=== PATIENT | male | born 1960 | race Caucasian/White ===

== ENCOUNTER 2016-10-26 16:19 | Inpatient (IN) | payer MEDICAID, OTHER ==
[~2016-10-26] VITALS: Ht 180.3 cm; Wt 147.2 kg
[~2016-10-26 16:19] MED LIST: ALAV10TA PO; ALBU2.5I INH; BACT2OIN TOPICAL; BISA5TAB PO; CALC500T19 PO; CVS20TAB PO; CYCL-36 PO; DOCU1CAP39 PO; DUONI NEB; IPRA0.03; LEVEMIR SQ; LISI20 PO; LORA0.5T PO; MONT10TA2 PO; NEUR100C PO; OXYC5 PO; PARO20; POLY17S PO; REST15CA PO; SENN8.6T36 PO; SPIRCAP INH; ST JTAB PO; ZINC100T PO
[2016-10-26 16:25] VITALS: BP 204/101; PULSE 97; RESP 20; TEMP 99.2; O2SAT 97
[2016-10-26 16:34] VITALS: RESP 20; O2SAT 97
--- NOTE | 2016-10-26 16:34 | PD ---
HPI Chief Complaint: Injury Time Seen by Provider: 16:33 Travel History International Travel<30 days: No Contact w/Intl Traveler<30days: No History of Present Illness HPI 56-year-old male with DM, COPD, chronic back pain presents to the ED via EMS from his rehabilitation Center after suffering a mechanical fall today. The patient states he was attempting to get out of his wheelchair, lost his balance , fell forward with the left knee bent underneath him. He endorses hitting his head on the wall. He denies loss of consciousness. On presentation he complains of 10/10 left lower extremity pain, worsened by movement. He denies headache, dizziness, nausea, vomiting, shortness of breath. Patient reports eating a full lunch around 12:30 today. PFSH Past Medical History Arthritis: Yes (ALL OVER) Asthma: Yes Autoimmune Disease: No Anxiety: Yes Depression: Yes Heart Rhythm Problems: No Cancer: No Cardiovascular Problems: No High Cholesterol: No Chest Pain: Yes (RIGHT SIDE OF CHEST) Congestive Heart Failure: No COPD: Yes Cerebrovascular Accident: No Diabetes: Yes (STATES BORDERLINE, NO MEDS.) Diminished Hearing: No Endocrine: No Gastrointestinal Disorders: No GERD: No Genitourinary: No Headaches: Yes Hiatal Hernia: No Hypertension: No Immune Disorder: No Implanted Vascular Access Dvce: No Kidney Stones: No Musculoskeletal: Yes (CHRONIC BACK) Neurologic: Yes Psychiatric: No Reproductive: No Respiratory: Yes Immunizations Current: No Migraines: Yes (FREQ) Renal Failure: No Seizures: No Sleep Apnea: No Thyroid Disease: No Ulcer: No PNEUMOCCOCAL Vaccine (Year): 1 Past Surgical History Abdominal Surgery: No AICD: No Cardiac Surgery: No Ear Surgery: No Endocrine Surgery: No Eye Surgery: No Genitourinary Surgery: No Gynecologic Surgery: No Joint Replacement: Yes (L HIP X 2) Neurologic Surgery: No (LAMINECTOMY) Oral Surgery: No Pacemaker: No Thoracic Surgery: Yes (ABCESS DRAINED IN CHEST 3 WEEKS AGO) Tonsillectomy: Yes Other Surgery: Yes (BACK SUGERY X2 /LEFT HIP SURGERY) Social History Alcohol Use: No Tobacco Use: No (QUIT 2011- 2PPD PRIOR) Substance Use: No Allergies-Medications (Allergen,Severity, Reaction): Coded Allergies: *MDRO Multi-Drug Resistant Organism (Verified Adverse Reaction, Unknown, ) MRSA (leg) - 05/2004, 10/2004 / (buttock) - 05/2006 *MRSA PCR negative 09/28/2015* Reported Meds & Prescriptions Reported Meds & Active Scripts Active Reported Vitamin D3 (Cholecalciferol) 2,000 Unit Tab 2,000 Units PO BID Trazodone (Trazodone HCl) 100 Mg Tab 100 Mg PO HS Spiriva Handihaler (Tiotropium Inh) 18 Mcg Cap 18 Mcg INH DAILY 1 capsule = 18 mcg Singulair (Montelukast Sodium) 10 Mg Tab 10 Mg PO HS Senna (Sennosides) 8.6 Mg Tab 17.2 Mg PO BID Prednisone 5 Mg Tab 7.5 Mg PO DAILY Paxil (Paroxetine HCl) 30 Mg Tab 30 Mg PO DAILY Patanase Nasal [place] (Olopatadine Nasal [place]) 0.6 % Naspr 2 [place] EACH NARE BID PRN Oxycodone (Oxycodone HCl) 10 Mg Tab 10 Mg PO Q6HR PRN Omeprazole 20 Mg Tab 20 Mg PO DAILY Milk of Magnesia Liq (Magnesium Hydroxide) 400 Mg/5 Ml Susp 30 Ml PO HS PRN Metformin (Metformin HCl) 1,000 Mg Tab 1,000 Mg PO BID With meals Lorazepam 0.5 Mg Tab 0.5 Mg PO TID PRN Alavert (Loratadine) 10 Mg Tab 10 Mg PO DAILY Atorvastatin (Atorvastatin Calcium) 10 Mg Tab 10 Mg PO HS Humulin R Inj (Insulin Human Regular) 1,000 Unit/10 Ml Vial 2-10 Units SQ TIDAC PRN IMPORTANT TO EAT A MEAL WITHIN 30-60 MINUTES OF DOSING Gabapentin 300 Mg Cap 300 Mg PO TID Flexeril (Cyclobenzaprine HCl) 10 Mg Tab 10 Mg PO HS Flexeril (Cyclobenzaprine HCl) 10 Mg Tab 10 Mg PO BID PRN Duoneb (Ipratropium-Albuterol Neb) 0.5-2.5 Mg/3 Ml Neb 1 Nebule INH QID NEB PRN Dulcolax Supp (Bisacodyl) 10 Mg Supp 10 Mg RECTAL DAILY PRN Colace (Docusate Sodium) 100 Mg Cap 200 Mg PO BID Cozaar (Losartan Potassium) 50 Mg Tab 50 Mg PO DAILY Calcium (Oyster Shell) 500 Mg Tab 500 Mg PO DAILY Basaglar Kwikpen (Insulin Glargine) 100 Unit/Ml Pen 25 Units SQ BID Aspirin DR (Aspirin) 81 Mg Tabdr 81 Mg PO DAILY Glimepiride 2 Mg Tab 2 Mg PO DAILYAC Take with breakfast or first main meal Albuterol Neb (Albuterol Sulfate) 2.5 Mg/3 Ml Neb 2.5 Mg NEB Q4HR NEB PRN Advair Diskus Inh (Fluticasone-Salmeterol Inh) 250-50 Mcg/Blist Aer 1 Puff INH BID Rinse mouth after use. Review of Systems Except as stated in HPI: all other systems reviewed are Neg Physical Exam Narrative GENERAL: Well-nourished, well-developed morbidly obese white male, writhing in pain on the stretcher. Alert, oriented 5. SKIN: Warm and dry. HEAD: Normocephalic. No tenderness to palpation. No bony step-offs. EYES: No scleral icterus. No injection or drainage. PERRLA. EOMI. NECK: Supple, trachea midline. No JVD or lymphadenopathy. CARDIOVASCULAR: Regular rate and rhythm without murmurs, gallops, or rubs. 2+ DP and radial pulses bilaterally. RESPIRATORY: Breath sounds clear and equal bilaterally. No accessory muscle use. GASTROINTESTINAL: Abdomen protuberant, soft, non-tender, nondistended. Unable to palpate liver or splenic edges. MUSCULOSKELETAL: No cyanosis, or edema. FOCUSED LEFT LOWER EXTREMITY EXAM: 2+ DP pulse. Mild visible deformity of the upper leg. Patient is holding the knee in slight flexion. Tender to palpation of the distal tibia, joint lines of the knee and proximal tibia. No popliteal tenderness. Patient is able to wiggle the toes and weakly flex and extend the ankle. Sensation intact to light touch distally. Cap refill less than 2 seconds. NEUROLOGICAL: Awake and alert. Cranial nerves II through XII intact. Motor and sensory grossly within normal limits. Five out of 5 muscle strength in all muscle groups. Normal speech. BACK: Nontender without obvious deformity. No CVA tenderness. Data Data Last Documented VS Vital Signs Date Time Temp Pulse Resp B/P Pulse Ox O2 Delivery O2 Flow Rate FiO2 10/26/16 19:12 98 22 149/67 98 Nasal Cannula 3 10/26/16 16:25 99.2 Orders Iv Access Insert/Monitor (10/26/16 16:31) Ecg Monitoring (10/26/16 16:31) Oximetry (10/26/16 16:31) NPO (10/26/16 16:31) Sodium Chloride 0.9% Flush (Ns Flush) (10/26/16 16:45) Hydromorphone Pf Inj (Dilaudid Pf Inj) (10/26/16 16:45) Femur (Ap & Lat/2vws) (10/26/16 16:31) Complete Blood Count With Diff (10/26/16 17:38) Comprehensive Metabolic Panel (10/26/16 17:38) Chest, Single Ap (10/26/16 ) Urinalysis - C+S If Indicated (10/26/16 17:38) Electrocardiogram (10/26/16 ) Urinary Catheter Insert/Apply (10/26/16 17:38) Hydromorphone Pf Inj (Dilaudid Pf Inj) (10/26/16 17:45) Coag Profile (10/26/16 17:40) Type And Screen (10/26/16 17:40) Sodium Chlor 0.9% 1000 Ml Inj (Ns 1000 M (10/26/16 18:45) Morphine Inj (Morphine Inj) (10/26/16 18:45) Admit Order (Ed Use Only) (10/26/16 19:29) Labs Laboratory Tests Test 10/26/16 18:00 White Blood Count 10.6 TH/MM3 Red Blood Count 5.04 MIL/MM3 Hemoglobin 12.8 GM/DL Hematocrit 40.0 % Mean Corpuscular Volume 79.4 FL Mean Corpuscular Hemoglobin 25.4 PG Mean Corpuscular Hemoglobin 32.0 % Concent Red Cell Distribution Width 16.8 % Platelet Count 170 TH/MM3 Mean Platelet Volume 10.0 FL Neutrophils (%) (Auto) 78.1 % Lymphocytes (%) (Auto) 13.4 % Monocytes (%) (Auto) 5.9 % Eosinophils (%) (Auto) 1.8 % Basophils (%) (Auto) 0.8 % Neutrophils # (Auto) 8.3 TH/MM3 Lymphocytes # (Auto) 1.4 TH/MM3 Monocytes # (Auto) 0.6 TH/MM3 Eosinophils # (Auto) 0.2 TH/MM3 Basophils # (Auto) 0.1 TH/MM3 CBC Comment DIFF FINAL Differential Comment Prothrombin Time 10.0 SEC Prothromb Time International 0.9 RATIO Ratio Activated Partial 22.9 SEC Thromboplast Time Urine Color YELLOW Urine Turbidity CLEAR Urine pH 5.5 Urine Specific [place] 1.014 Urine Protein 100 mg/dL Urine Glucose (UA) 70 mg/dL Urine Ketones NEG mg/dL Urine Occult Blood MOD Urine Nitrite NEG Urine Bilirubin NEG Urine Urobilinogen LESS THAN 2.0 MG/DL Urine Leukocyte Esterase NEG Urine RBC 1 /hpf Urine WBC 1 /hpf Urine Mucus FEW /lpf Microscopic Urinalysis Comment CULT NOT INDICATED Sodium Level 141 MEQ/L Potassium Level 4.4 MEQ/L Chloride Level 102 MEQ/L Carbon Dioxide Level 30.0 MEQ/L Anion Gap 9 MEQ/L Blood Urea Nitrogen 22 MG/DL Creatinine 1.25 MG/DL Estimat Glomerular Filtration 60 ML/MIN Rate Random Glucose 191 MG/DL Calcium Level 8.8 MG/DL Total Bilirubin 0.4 MG/DL Aspartate Amino Transf 11 U/L (AST/SGOT) Alanine Aminotransferase 45 U/L (ALT/SGPT) Alkaline Phosphatase 74 U/L Total Protein 6.7 GM/DL Albumin 3.3 GM/DL Blood Type AB POSITIVE Antibody Screen NEGATIVE Blood Bank Comment MDM Medical Decision Making Medical Screen Exam Complete: Yes Emergency Medical Condition: Yes Interpretation(s) Rate 102, sinus rhythm. NC interval 143, QRS 93, QTc 389 ms. Normal axis. No ST elevations. Reviewed by Dr. Munoz Differential Diagnosis fracture versus dislocation versus ligamentous injury versus other Narrative Course 56-year-old male with DM, COPD, chronic back pain presents to the ED via EMS from his rehabilitation Center after suffering a mechanical fall today. The patient states he was attempting to get out of his wheelchair, lost his balance , fell forward with the left knee bent underneath him. He endorses hitting his head on the wall. He denies loss of consciousness. On presentation he complains of 10/10 left lower extremity pain, worsened by movement. He denies headache, dizziness, nausea, vomiting, shortness of breath. Patient reports eating a full lunch around 12:30 today. Vitals reviewed. Patient is hypertensive on presentation. Physical exam reveals 2+ DP pulse. Mild visible deformity of the upper leg. Patient is holding the knee in slight flexion. Tender to palpation of the distal tibia, joint lines of the knee and proximal tibia. No popliteal tenderness. Patient is able to wiggle the toes and weakly flex and extend the ankle. Sensation intact to light touch distally. Cap refill less than 2 seconds. The need for radiological studies of the brain was ruled out by [place] CT rules. IV was established. Patient was placed on continuous monitoring. Patient was ordered nothing by mouth. He was administered a milligram of Dilaudid IV. X-ray of the femur reveals oblique fracture of the distal shaft of the left femur with lateral displacement. CBC, CMP, coag profile, type and screen, EKG, chest x-ray, Medina catheter ordered and pending. Call placed to the on-call orthopedist, Dr. Fowler. Recheck of the patient reveals continued pain. He was administered 0.5 mg Dilaudid IV and a liter of normal saline. The community service officer states that Dr. Fowler refused the patient and asked that a call be placed to Dr. Duckworth. I'll admit the patient to the medical service and consult the orthopedist. Please see medicine and ortho notes for disposition. Diagnosis Primary Impression: Fracture of left femur Qualified Code: S72.492A - Other closed fracture of distal end of left femur, initial encounter Ella Leonardo Oct 26, 2016 16:34
[2016-10-26] MEDS ORDERED: HYDROmorphone HCL PF 1 MG/ML VIAL IVS ONE (16:45)
[2016-10-26] MEDS ORDERED: SODIUM CHLORIDE 0.9% FLUSH 5 ML FLUSH IVF PRN (16:45)
[2016-10-26] MEDS ORDERED: ADVA250A INH (16:49)
[2016-10-26] MEDS ORDERED: SENN8.6T5 PO (17:13)
[2016-10-26] MEDS ORDERED: METF1000 PO (17:13)
[2016-10-26] MEDS ORDERED: PATA0.6S EACH NARE (17:13)
[2016-10-26] MEDS ORDERED: VITA200012 PO (17:13)
[2016-10-26] MEDS ORDERED: LORA-373 PO (17:13)
[2016-10-26] MEDS ORDERED: DULC10SU3 RECTAL (17:13)
[2016-10-26] MEDS ORDERED: INSU100V2 SQ (17:13)
[2016-10-26] MEDS ORDERED: PAXI30TA7 PO (17:13)
[2016-10-26] MEDS ORDERED: ASPI81TA5 PO (17:13)
[2016-10-26] MEDS ORDERED: OMEP20TA PO (17:13)
[2016-10-26] MEDS ORDERED: INSU1INJ18 SQ (17:13)
[2016-10-26] MEDS ORDERED: MONT10TA2 PO (17:13)
[2016-10-26] MEDS ORDERED: ALBU0.08 NEB (17:13)
[2016-10-26] MEDS ORDERED: COZA50TA PO (17:13)
[2016-10-26] MEDS ORDERED: TRAZ100T4 PO (17:13)
[2016-10-26] MEDS ORDERED: CALC500T35 PO (17:13)
[2016-10-26] MEDS ORDERED: COLA100C3 PO (17:13)
[2016-10-26] MEDS ORDERED: ATOR10TA15 PO (17:13)
[2016-10-26] MEDS ORDERED: GLIM2TAB PO (17:13)
[2016-10-26] MEDS ORDERED: IPRASOL INH (17:13)
[2016-10-26] MEDS ORDERED: ALAV10TA10 PO (17:13)
[2016-10-26] MEDS ORDERED: CYCL1TAB29 PO ×2 (17:13)
[2016-10-26] MEDS ORDERED: MILKSUS PO (17:13)
[2016-10-26] MEDS ORDERED: PRED5TAB PO (17:13)
[2016-10-26] MEDS ORDERED: SPIRCAP INH (17:13)
[2016-10-26] MEDS ORDERED: GABA300C5 PO (17:13)
[2016-10-26] MEDS ORDERED: OXYC-395 PO (17:13)
--- NOTE | 2016-10-26 17:31 | RADRPT ---
EXAM DATE/TIME: 10/26/2016 17:01 [facility] COMPARISON: No previous studies available for comparison. INDICATIONS : Left femur pain post fall. MEDICAL HISTORY : None. SURGICAL HISTORY : Left hip pinning ENCOUNTER: Initial ACUITY: 1 day PAIN SCORE: 10/10 LOCATION: Left distal femur FINDINGS: Two view examination of the left femur demonstrates oblique fracture distal shaft left femur with dis placement laterally. Soft tissue swelling. Extensive arthritic changes of the left hip. Screw in plac e CONCLUSION: Distal left femur fracture. Marty Martinez MD on October 26, 2016 at 17:29 Board Certified Radiologist. This report was verified electronically.
[2016-10-26] MEDS ORDERED: HYDROmorphone HCL PF 1 MG/ML VIAL IV PUSH ONE (17:45)
[2016-10-26 18:07] VITALS: BP 137/99; PULSE 94; RESP 18; O2SAT 97
--- NOTE | 2016-10-26 18:09 | RADRPT ---
EXAM DATE/TIME: 10/26/2016 17:52 [facility] COMPARISON: No previous studies available for comparison. INDICATIONS : Evaluate for pneumonia, pneumothorax or communicable disease. Pre-op, left femur surgery. MEDICAL HISTORY : None. SURGICAL HISTORY : None. ENCOUNTER: Initial ACUITY: 1 day PAIN SCORE: 0/10 LOCATION: Bilateral chest FINDINGS: A single view of the chest demonstrates the lungs to be symmetrically aerated without evidence of mas s, infiltrate or effusion. The cardiomediastinal contours are unremarkable. Osseous structures are intact. CONCLUSION: No acute disease. Marty Martinez MD on October 26, 2016 at 18:08 Board Certified Radiologist. This report was verified electronically.
[2016-10-26 18:20] LABS: BLOOD, URINE MOD (NEG); COMMENT (UR) CULT NOT INDICATED; CULTURE IF INDICATED CULT NOT INDICATED; GLUCOSE,URINE 70 mg/dL (NEG); KETONE, URINE NEG (NEG); MUCUS URINE FEW /lpf (OCC); NITRITE,URINE NEG (NEG); PH, URINE 5.5 (5.0-8.5); URINE COLOR YELLOW (YELLW/STRAW)
[2016-10-26 18:21] LABS: AUTOMATED NEUTROPHIL # 8.3 TH/MM3 (1.8-7.7); BASOPHIL # 0.1 TH/MM3 (0-0.2); BASOPHIL % 0.8 % (0.0-2.0); EOSINOPHIL # 0.2 TH/MM3 (0-0.4); EOSINOPHIL % 1.8 % (0.0-4.0); HEMO FLAGS DIFF FINAL; LYMPH % 13.4 % (9.0-44.0); LYMPHOCYTE # 1.4 TH/MM3 (1.0-4.8); MEAN CELL VOLUME 79.4 FL (80.0-100.0); MEAN CORPUSCULAR HEMOGLOBIN 25.4 PG (27.0-34.0); MONO % 5.9 % (0.0-8.0); NEUT % 78.1 % (16.0-70.0); PLATELET COUNT 170 TH/MM3 (150-450); RED BLOOD COUNT 5.04 MIL/MM3 (4.50-5.90); RED CELL DISTRIBUTION WIDTH 16.8 % (11.6-17.2); WHITE BLOOD COUNT 10.6 TH/MM3 (4.0-11.0)
[2016-10-26 18:32] LABS: APTT (PATIENT) 22.9 SEC (24.3-30.1); INTERNATIONAL NORMALIZED RATIO 0.9 RATIO
[2016-10-26 18:34] LABS: ANION GAP 9 MEQ/L (5-15); AST (GOT) 11 U/L (15-37); BLOOD UREA NITROGEN 22 MG/DL (7-18); CHLORIDE 102 MEQ/L (98-107); GLOMERULAR FILTRATION RATE 60 ML/MIN (>89); POTASSIUM 4.4 MEQ/L (3.5-5.1); SODIUM (NA) 141 MEQ/L (136-145)
[2016-10-26 18:37] LABS: ALKALINE PHOSPHATASE 74 U/L (45-117); ALT (GPT) 45 U/L (12-78); TOTAL BILIRUBIN ADULT 0.4 MG/DL (0.2-1.0)
[2016-10-26] MEDS ORDERED: SODIUM CHLOR 0.9% 1000 ML INJ 1,000 ML IV ONE (18:45)
[2016-10-26] MEDS ORDERED: MORPHINE SULFATE 4 MG/ML INJ IM ONE (18:45)
[2016-10-26 19:12] VITALS: BP 149/67; PULSE 98; RESP 22; O2SAT 98
--- NOTE | 2016-10-26 19:41 | HHI.HP ---
[facility] Admission Diagnosis oblique fracture distal left femur Diagnoses: (1) Fall Diagnosis: Principal (2) Fracture of left femur Diagnosis: Principal (3) COPD (chronic obstructive pulmonary disease) Diagnosis: Principal (4) HTN (hypertension) Diagnosis: Principal (5) DM (diabetes mellitus) Diagnosis: Principal Travel History International Travel<30 Days: No Contact w/Intl Traveler <30 Da: No Traveled to Known Affected Are: No History of Present Illness This is a 56-year-old male with a PMH of Anxiety, Depression, COPD, HTN and DM who was sent to the ER from [facility] for complaints of left knee pain following fall. Pt was apparently transferring from wheelchair and fell onto his left knee. No LOC or head trauma reported. On arrival, BP 204/101, HR 97, O2 sat 97% on RA, Temp 99.2. BP currently 149/67, HR 98. Chemistry at baseline. UA negative for UTI. CXR with no acute findings. Femur X-ray with distal left femur fracture. Ortho consulted by ER physician, plan is for surgical intervention in am. Review of Systems Except as stated in HPI: all other systems reviewed are Neg ROS: 14 point review of systems otherwise negative. Past Family Social History Past Medical History PMH: Anxiety, Depression, COPD, HTN and DM Past Surgical History PAST SURGICAL HISTORY: Left Hip Replacement, Lumbar Laminectomy Allergies: Coded Allergies: *MDRO Multi-Drug Resistant Organism (Verified Adverse Reaction, Unknown, ) MRSA (leg) - 05/2004, 10/2004 / (buttock) - 05/2006 *MRSA PCR negative 09/28/2015* Family History PAST FAMILY HISTORY: Reviewed. No h/o DM or CAD Social History PAST SOCIAL HISTORY: Negative for alcohol, tobacco or drugs. Physical Exam Vital Signs Vital Signs Date Time Temp Pulse Resp B/P Pulse Ox O2 Delivery O2 Flow Rate FiO2 10/26/16 19:12 98 22 149/67 98 Nasal Cannula 3 10/26/16 18:07 94 18 137/99 97 Room Air 2 10/26/16 16:34 20 97 Room Air 10/26/16 16:25 99.2 97 20 204/101 97 Physical Exam PE: GENERAL: Middle-aged white male in no acute distress. HEENT: PERRLA, EOMI. No scleral icterus or conjunctival pallor. No lid lag or facial droop. CARDIOVASCULAR: Regular rate and rhythm. No obvious murmurs to auscultation. No chest tenderness to palpation. RESPIRATORY: No obvious rhonchi or wheezing. Clear to auscultation. Breath sounds equal bilaterally. GASTROINTESTINAL: Abdomen obese but soft, non-tender, nondistended. BS normal. MUSCULOSKELETAL: Decreased ROM of LLE due to injury. Pulses intact. NEUROLOGICAL: Awake, alert and oriented x4. No focal neurologic deficits. Moving both upper and lower extremities spontaneously. Laboratory Laboratory Tests Test 10/26/16 18:00 White Blood Count 10.6 Red Blood Count 5.04 Hemoglobin 12.8 Hematocrit 40.0 Mean Corpuscular Volume 79.4 Mean Corpuscular Hemoglobin 25.4 Mean Corpuscular Hemoglobin 32.0 Concent Red Cell Distribution Width 16.8 Platelet Count 170 Mean Platelet Volume 10.0 Neutrophils (%) (Auto) 78.1 Lymphocytes (%) (Auto) 13.4 Monocytes (%) (Auto) 5.9 Eosinophils (%) (Auto) 1.8 Basophils (%) (Auto) 0.8 Neutrophils # (Auto) 8.3 Lymphocytes # (Auto) 1.4 Monocytes # (Auto) 0.6 Eosinophils # (Auto) 0.2 Basophils # (Auto) 0.1 CBC Comment DIFF FINAL Differential Comment Prothrombin Time 10.0 Prothromb Time International 0.9 Ratio Activated Partial 22.9 Thromboplast Time Urine Color YELLOW Urine Turbidity CLEAR Urine pH 5.5 Urine Specific [place] 1.014 Urine Protein 100 Urine Glucose (UA) 70 Urine Ketones NEG Urine Occult Blood MOD Urine Nitrite NEG Urine Bilirubin NEG Urine Urobilinogen LESS THAN 2.0 Urine Leukocyte Esterase NEG Urine RBC 1 Urine WBC 1 Urine Mucus FEW Microscopic Urinalysis Comment CULT NOT INDICATED Sodium Level 141 Potassium Level 4.4 Chloride Level 102 Carbon Dioxide Level 30.0 Anion Gap 9 Blood Urea Nitrogen 22 Creatinine 1.25 Estimat Glomerular Filtration 60 Rate Random Glucose 191 Calcium Level 8.8 Total Bilirubin 0.4 Aspartate Amino Transf 11 (AST/SGOT) Alanine Aminotransferase 45 (ALT/SGPT) Alkaline Phosphatase 74 Total Protein 6.7 Albumin 3.3 Blood Type AB POSITIVE Antibody Screen NEGATIVE Blood Bank Comment Result Diagram: 10/26/16 1800 10/26/16 1800 Assessment and Plan Problem List: (1) Fall ICD Code: W19.XXXA Status: Acute (2) Fracture of left femur ICD Code: S72.92XA Status: Acute (3) HTN (hypertension) ICD Code: I10 Status: Acute (4) COPD (chronic obstructive pulmonary disease) ICD Code: J44.9 Status: Chronic (5) DM (diabetes mellitus) ICD Code: E11.9 Status: Acute Assessment and Plan A/P: 1. Fall: s/p mechanical fall from wheelchair, no LOC or head trauma reported. 2. Left Distal Femur Fx: Femur X-ray w/ distal left femur fracture, images reviewed by me. Ortho consulted by ER doc, plan is for surgical intervention in am. NPO, IVF, analgesics/antiemetics as needed. Pre-op labs unremarkable. 3. HTN: BP on arrival, 204/101, HR 97, likely compounded by pain, BP currently 149/67, HR 98. Resume home Losartan, monitor BP. 4. COPD: Chronic Respiratory Failure. Stable. Resume home Spiriva/Advair, DuoNeb prn 5. DM: Sliding scale w/ Accu-Cheks. Hold Metformin as pt will be NPO. 6. DVT Prophylaxis: Anticoagulation post-op per Ortho. 7. Social work for d/c planning as needed. 8. Case discussed w/ ER physician at length Physician Certification 2 Midnight Certification Type: Admission for Inpatient Services Order for Inpatient Services The services are ordered in accordance with Medicare regulations or non- Medicare payer requirements, as applicable. In the case of services not specified as inpatient-only, they are appropriately provided as inpatient services in accordance with the 2-midnight benchmark. Estimated LOS (days): 2 days is the estimated time the patient will need to remain in the hospital, assuming treatment plan goals are met and no additional complications. Post-Hospital Plan: Not yet determined Problem Qualifiers (1) Fracture of left femur: Qualified Code: S72.492A - Other closed fracture of distal end of left femur, initial encounter Lissy Davey MD Oct 26, 2016 19:41
[2016-10-26] MEDS ORDERED: BISACODYL 10 MG SUPP PR PRN (19:45)
[2016-10-26] MEDS ORDERED: RESP: ALBUTEROL 2.5 MG/3 ML NEB (PRN) NEB (19:45)
[2016-10-26] MEDS ORDERED: DEXTROSE 50% IN WATER 50 ML VIAL(D50) IV PUSH PRN (19:45)
[2016-10-26] MEDS ORDERED: SODIUM CHLORIDE 0.9% FLUSH 5 ML FLUSH FLUSH PRN (19:45)
[2016-10-26] MEDS ORDERED: CYCLOBENZAPRINE HCL 10 MG TAB PO PRN (19:45)
[2016-10-26] MEDS ORDERED: MAGNESIUM HYDROXIDE SUSP 30 ML CUP PO PRN (19:45)
[2016-10-26] MEDS ORDERED: ONDANSETRON HCL 4 MG/2 ML VIAL IVP PRN (19:45)
[2016-10-26] MEDS ORDERED: ACETAMINOPHEN 325 MG TAB PO PRN (19:45)
[2016-10-26] MEDS ORDERED: GLUCAGON 1 MG/ML VIAL OTHER PRN (19:45)
[2016-10-26] MEDS ORDERED: PILL SPLITTER OTHER PRN (20:00)
[2016-10-26] MEDS: HYDROmorphone HCL PF 1 MG/ML VIAL IV PRN ×2 (20:08→23:54)
[2016-10-26] MEDS: SODIUM CHLOR 0.9% 1000 ML INJ 1,000 ML IV SCH (20:34)
[2016-10-26] MEDS: DOCUSATE SODIUM 100 MG CAP PO SCH (21:00)
[2016-10-26] MEDS: BUDESONIDE-FORMOTEROL 160/4.5 MCG INHALER INH SCH (21:00)
[2016-10-26] MEDS ORDERED: SODIUM CHLORIDE 0.9% FLUSH 5 ML FLUSH FLUSH SCH (21:00)
[2016-10-26 22:35] VITALS: BP 157/90; PULSE 91; RESP 22; TEMP 96.6; O2SAT 97
[2016-10-26] MEDS: MONTELUKAST SODIUM 10 MG TAB PO SCH (22:42)
[2016-10-26] MEDS: CYCLOBENZAPRINE HCL 10 MG TAB PO SCH (22:42)
[2016-10-26] MEDS: traZODone HCL 100 MG TAB PO SCH (22:42)
[2016-10-26] MEDS: ATORVASTATIN 10 MG TAB PO SCH (22:42)
[2016-10-26] MEDS: INSULIN ASPART SUPPLEMENTAL SCALE SQ SCH (22:48)
[2016-10-26] MEDS: LORazepam 0.5 MG TAB PO PRN (23:01)
[2016-10-26] MEDS ORDERED: LACTATED RINGER'S 1000 ML IV SCH (23:45)
[2016-10-27] VITALS (8 sets, daily range): BP systolic 130–153; BP diastolic 70–86; PULSE 80–117; RESP 16–22; TEMP 97.9–99; O2SAT 93–98
[2016-10-27] MEDS: HYDROmorphone HCL PF 1 MG/ML VIAL IV PRN ×2 (03:48→06:32)
[2016-10-27] MEDS: SODIUM CHLOR 0.9% 1000 ML INJ 1,000 ML IV SCH (05:37)
[2016-10-27] MEDS: INSULIN ASPART SUPPLEMENTAL SCALE SQ SCH ×4 (06:22→21:02)
[2016-10-27] MEDS: LORazepam 0.5 MG TAB PO PRN ×2 (06:32→21:02)
[2016-10-27] MEDS ORDERED: VANCOMYCIN HCL 1000 MG VIAL ONE (06:57)
--- NOTE | 2016-10-27 06:57 | PD.ORT.PN ---
Subjective Subjective Remarks [facility]. Objective Vitals Vital Signs Date Time Temp Pulse Resp B/P Pulse Ox O2 Delivery O2 Flow Rate FiO2 10/27/16 04:01 98.1 101 22 141/86 95 10/26/16 23:04 21 10/26/16 22:35 96.6 91 22 157/90 97 10/26/16 19:12 98 22 149/67 98 Nasal Cannula 3 10/26/16 18:07 94 18 137/99 97 Room Air 2 10/26/16 16:34 20 97 Room Air 10/26/16 16:25 99.2 97 20 204/101 97 I/O 10/26/16 10/26/16 10/26/16 10/27/16 10/27/16 10/27/16 07:00 15:00 23:00 07:00 15:00 23:00 Intake Total 480 ml 240 ml Output Total 250 ml 600 ml Balance 230 ml -360 ml Intake Oral 480 ml 240 ml Output Urine Total 250 ml 600 ml # Bowel Movements 0 0 Result Diagram: 10/26/16 1800 10/26/16 1800 Other Results Laboratory Tests Test 10/26/16 18:00 Prothrombin Time 10.0 SEC (9.8-11.6) Prothromb Time International 0.9 RATIO Ratio Imaging Last 24 hours Impressions Femur X-Ray 10/26/16 1631 Signed Impressions: Service Date/Time: Wednesday, October 26, 2016 17:01 - CONCLUSION: Distal left femur fracture. Marty Martinez MD Objective Remarks LLE: leg externally rotated. pain with motion. NVI Assessment & Plan Assessment and Plan 1) Left Distal Femur Fx -npo -consents -surgery today Andrew Yang Oct 27, 2016 06:56
[2016-10-27] MEDS ORDERED: GENTAMICIN SULFATE 80 MG/2 ML VIAL ONE (06:58)
[2016-10-27] MEDS ORDERED: SODIUM CHLOR 0.9% 250 ML INJ 250 ML ONE (06:58)
[2016-10-27 07:03] LABS: AUTOMATED NEUTROPHIL # 8.5 TH/MM3 (1.8-7.7); BASOPHIL # 0.1 TH/MM3 (0-0.2); BASOPHIL % 0.8 % (0.0-2.0); EOSINOPHIL # 0.3 TH/MM3 (0-0.4); EOSINOPHIL % 2.2 % (0.0-4.0); HEMATOCRIT 37.4 % (39.0-51.0); LYMPH % 15.4 % (9.0-44.0); LYMPHOCYTE # 1.8 TH/MM3 (1.0-4.8); MEAN CORPUSCULAR HEMOGLOBIN 24.7 PG (27.0-34.0); MEAN CORPUSCULAR HGB CONC 31.3 % (32.0-36.0); MONO % 8.4 % (0.0-8.0); NEUT % 73.2 % (16.0-70.0); PLATELET COUNT 168 TH/MM3 (150-450); RED BLOOD COUNT 4.73 MIL/MM3 (4.50-5.90); RED CELL DISTRIBUTION WIDTH 16.5 % (11.6-17.2); WHITE BLOOD COUNT 11.6 TH/MM3 (4.0-11.0)
[2016-10-27 07:05] LABS: HEMO FLAGS AUTO DIFF
[2016-10-27] MEDS ORDERED: ACETAMINOPHEN 1000 MG/100 ML VIAL IV ONE (07:15)
[2016-10-27] MEDS ORDERED: HYDROmorphone HCL PF 2 MG/ML VIAL ONE (07:15)
[2016-10-27 07:35] LABS: ALKALINE PHOSPHATASE 66 U/L (45-117); ALT (GPT) 48 U/L (12-78); ANION GAP 7 MEQ/L (5-15); AST (GOT) 102 U/L (15-37); BICARBONATE 29.9 MEQ/L (21.0-32.0); BLOOD UREA NITROGEN 22 MG/DL (7-18); CHLORIDE 104 MEQ/L (98-107); GLOMERULAR FILTRATION RATE 66 ML/MIN (>89); POTASSIUM 4.2 MEQ/L (3.5-5.1); SODIUM (NA) 141 MEQ/L (136-145); TOTAL BILIRUBIN ADULT 0.4 MG/DL (0.2-1.0)
--- NOTE | 2016-10-27 07:43 | MB ---
cc: BRYON GALE CAMILLE MD DATE OF CONSULTATION: 10/27/2016 REASON FOR CONSULTATION Left distal femoral shaft fracture. CONSULTING PHYSICIAN Dr. Davey HISTORY OF PRESENT ILLNESS Artis is a 56-year-old male who has a history of anxiety, depression, COPD, hypertension and diabetes. He was in [facility] when he had a fall. He was transferring out of a wheelchair when he fell. He twisted his left leg. He had immediate left thigh pain. He presented to the emergency room where x-rays revealed a displaced left femur fracture. He is currently awake and alert on the orthopedic floor. He states that he was in [facility] because he had been electrocuted. He subsequently developed an abscess of his chest that needed surgical intervention. Currently all his complaints are regarding his left leg. PAST MEDICAL HISTORY ILLNESSES 1. Anxiety. 2. Depression. 3. COPD. 4. Hypertension. 5. Diabetes. SURGERIES 1. Left hip pinning. 2. Lumbar laminectomy. 3. Abscess debridement. ALLERGIES No known drug allergies. He has a history of MRSA. MEDICATIONS Please see EMR for the complete list of inpatient medications. ILLNESSES SOCIAL HISTORY The patient is currently in [facility]. He denies alcohol, tobacco or drug use. FAMILY HISTORY Noncontributory. He denies a family history of coronary artery disease or diabetes. REVIEW OF SYSTEMS The patient denies headache, visual changes, neck pain, chest pain, shortness of breath, abdominal pain, nausea, vomiting, recent weight loss or numbness or tingling of extremities. He complains of left leg pain. Pain is worse with movement. PHYSICAL EXAMINATION GENERAL: The patient is a well-developed, well-nourished 56-year-old male who is moderately overweight. He is awake and alert. He is alert and oriented x3. VITAL SIGNS: Temperature 98.1, pulse 101, respirations 22, blood pressure 141/86. O2 sat is 95% on room air. HEAD: The patient is normocephalic. Pupils are equal. NECK: Soft, nontender. Trachea is midline. ABDOMEN: Soft, nontender, nondistended. EXTREMITIES: Examination of bilateral upper extremities reveals no obvious pain or deformity with shoulder, elbow or wrist motion. Radial pulses are palpable. Contact Lens Curve Grinder strength is +5. Sensation is intact in his fingers. Examination of right leg reveals no significant pain with hip, knee or ankle motion. Skin is intact. Dorsalis pedis pulse is palpable. Examination of left leg reveals pain with any attempted hip or knee motion. He is diffusely tender around his thigh. Calf and thigh compartments are soft. Dorsalis pedis pulse is palpable. Sensation is intact in the left foot. X-RAYS X-rays of left femur were reviewed. X-rays reveal a long oblique fracture to the distal femoral shaft and metaphysis. IMPRESSION 1. Diabetes. 2. Hypertension. 3. COPD. 4. Left femur fracture. PLAN The treatment options were discussed with the patient. At this point I would recommend left femur reduction with intramedullary nail fixation or possible fixation with plates and screws. The risks of surgery include bleeding, infection, injuries to arteries, nerves and blood vessels, nonunion, malunion, painful hardware, as well as medical complications including blood clot, stroke, heart attack and . All questions were answered. The patient is also noted to have severe osteoarthritis of his left hip. He may need hip replacement surgery in the future. All questions were answered. A mid-level provider in my office, nurse practitioner or PA, may see this patient on a follow-up basis and continue to implement the objective of this plan including: Starting or adjusting medications, injections of muscle, tendon, bursa or joints, cast application, orthotic or brace application, physical therapy, further radiographic studies including x-ray, MRI, CT, ultrasounds or bone scan, vascular studies, neurologic studies, or other specialist consultations, and proceeding with surgical management as appropriate. MD BAKARI Fernandez/JANIE /7:26 AM /7:35 AM
[2016-10-27] MEDS ORDERED: FAMOTIDINE 20 MG/2 ML VIAL ONE (07:46)
[2016-10-27] MEDS ORDERED: METOCLOPRAMIDE HCL 10 MG/2 ML VIAL ONE (07:47)
[2016-10-27] MEDS ORDERED: DEXAMETHASONE SOD PHOS 4 MG/ML VIAL ONE (07:47)
[2016-10-27 08:14] LABS: SCAN/DIFF AUTO DIFF CONFIRMED
[2016-10-27] MEDS ORDERED: ceFAZolin INJ 1,000 MG VIAL ONE (08:14)
[2016-10-27] MEDS ORDERED: XARE10TA PO (08:29)
[2016-10-27] MEDS ORDERED: ERGO1CAP30 PO (08:29)
[2016-10-27] MEDS ORDERED: HYDR-3288 PO (08:29)
[2016-10-27] MEDS ORDERED: WALKER/ADULT/FO1 MIS (08:29)
[2016-10-27] MEDS: PARoxetine HCL 20 MG TAB PO SCH (09:00)
[2016-10-27] MEDS: DOCUSATE SODIUM 100 MG CAP PO SCH ×2 (09:00→20:49)
[2016-10-27] MEDS: BUDESONIDE-FORMOTEROL 160/4.5 MCG INHALER INH SCH ×2 (09:00→22:03)
[2016-10-27] MEDS: LOSARTAN 50 MG TAB PO SCH (09:00)
[2016-10-27] MEDS: GABAPENTIN 300 MG CAP PO SCH ×3 (09:00→17:35)
[2016-10-27] MEDS: TIOTROPIUM BROMIDE 18 MCG INH INH SCH (09:00)
[2016-10-27] MEDS ORDERED: INFLUENZA VIRUS VACCINE (QUADRIVALENT) 0.5 ML SYR IM ONE (09:00)
[2016-10-27] MEDS: LACTATED RINGER'S 1000 ML INJ 1,000 ML IV SCH ×2 (09:23→21:53)
--- NOTE | 2016-10-27 09:28 | PD.OP ---
Operative Report Date of Surgery: Oct 27, 2016 Preoperative Diagnosis: Displaced left femoral shaft fracture Postoperative Diagnosis: Procedure: Retrograde intramedullary nail fixation left femur Anesthesia: Gen. Surgeon: Mk Roche Branch Controller(s): KYE Griffiths PA-C The surgical procedure was assisted by my physician assistant technician. My P.A. presence was necessary throughout this case for the manipulation and positioning of the surgical extremity. My P.A. was assisting me throughout the duration of this procedure. The skill set of a physician assistant technician was medically necessary to complete this procedure. During the surgical case the director medical surgical was working at the back table and the physician assistant technician was directly assisting me. Operation and Findings: Implants used: Synthes 13 mm x 360 mm femoral nail Plan of activity: Toe-touch weightbearing Patient was seen and evaluated preoperatively. The patient has significant leg pain from left distal femur shaft fracture. The risk and benefits of surgery were discussed in depth with the patient to include bleeding, infection, nonunion, malunion, need for hip replacement, painful hardware, as well as medical competitions including blood clots, stroke, heart attack, and . Informed consent was obtained. Operative site was marked. Patient was brought to the operating room and placed on Min table. IV sedation was administered by anesthesiologist. Timeout procedure was performed. Hip and leg were prepped with alcohol followed by Hibiclens and draped in the usual sterile fashion. IV antibiotics were given prior to incision. Procedure began with reduction of fracture. Traction was applied. The leg was manipulated to achieve reduction. Excellent reduction was achieved. Fluoroscopy was used to confirm reduction. A two inch incision was made over the anterior knee. A medial arthrotomy was created. Guidepin was placed into the distal femur and advanced into the femoral canal. Fluoroscopy confirmed appropriate guidepin placement. A opening reamer was placed over the guidepin. A long ball tipped guide pin was now placed down the femoral canal into the center of the proximal femur. The nail length was now measured. Fluoroscopy confirmed appropriate guidepin placement. Flexible reamers were now passed over the guidepin to ream the intramedullary canal. The canal was reamed up to size 14. At this point it was difficult to maintain reduction. A blocking screw was placed from lateral to medial in the distal segment. A second locking screw was placed from anterior to posterior in the distal femur segment The Synthes nail was attached to the insertion handle. Nail was now placed over the guidepin into the femoral canal. Fluoroscopy confirmed appropriate nail placement. A small percutaneous incisions were made over the lateral thigh. Cannulas were placed through the insertion handle down to the femur. Using the insertion handle as a guide the 3 distal interlocking screw holes were predrilled and screw lengths were measured. Appropriate length screws was now placed. Next, using perfect [place] technique two proximal interlocking screws were placed. Screw holes were predrilled and screw lengths were measured. Final fluoroscopy revealed well aligned fracture with well-placed hardware. Incision was closed with 0 Vicryl, 3-0 Vicryl and venice. Sterile dressings were applied. Patient was awakened and transferred to recovery room. Mk Roche MD Oct 27, 2016 09:28
[2016-10-27] MEDS ORDERED: MISCELLANEOUS PHARMACY INFORMATION XX ONE (09:30)
[2016-10-27] MEDS ORDERED: MISCELLANEOUS NURSING INFORMATION XX PRN (09:30)
[2016-10-27] MEDS ORDERED: SODIUM CHLORIDE 0.9% FLUSH 5 ML FLUSH IVF PRN (09:30)
[2016-10-27] MEDS ORDERED: Post-op Orders (for Pharmacy) MISC XX ONE (09:30)
[2016-10-27] MEDS ORDERED: diphenhydrAMINE HCL 25 MG CAP PO PRN (09:30)
[2016-10-27] MEDS ORDERED: *RESP: ALBUTEROL 2.5 MG/3 ML NEB (PRN) PERIprocedural Use ONLY NEB ONE (09:50)
--- NOTE | 2016-10-27 09:53 | HHI.PR ---
Subjective Remarks back from surgery awake and alert no pain complains at present Objective Vitals Vital Signs Date Time Temp Pulse Resp B/P Pulse Ox O2 Delivery O2 Flow Rate FiO2 10/27/16 07:15 98.8 96 20 153/77 94 10/27/16 04:01 98.1 101 22 141/86 95 10/26/16 23:04 21 10/26/16 22:35 96.6 91 22 157/90 97 10/26/16 19:12 98 22 149/67 98 Nasal Cannula 3 10/26/16 18:07 94 18 137/99 97 Room Air 2 10/26/16 16:34 20 97 Room Air 10/26/16 16:25 99.2 97 20 204/101 97 I/O 10/26/16 10/26/16 10/26/16 10/27/16 10/27/16 10/27/16 07:00 15:00 23:00 07:00 15:00 23:00 Intake Total 480 ml 240 ml Output Total 250 ml 600 ml Balance 230 ml -360 ml Intake Oral 480 ml 240 ml Output Urine Total 250 ml 600 ml # Bowel Movements 0 0 Result Diagram: 10/27/16 0605 10/27/16 0605 Imaging Last Impressions Femur X-Ray 10/26/16 1631 Signed Impressions: Service Date/Time: Wednesday, October 26, 2016 17:01 - CONCLUSION: Distal left femur fracture. Marty Martinez MD Chest X-Ray 10/26/16 0000 Signed Impressions: Service Date/Time: Wednesday, October 26, 2016 17:52 - CONCLUSION: No acute disease. Marty Martinez MD Objective Remarks awake and alert, oriented x 3 anicteric lungs no rales or wheezes regular rhythm abdomen soft, nontender extremities- post op dressing in place left hip good peripheral pulses Procedures 10/27- IMN left hip A/P Problem List: (1) Fall ICD Code: W19.XXXA Status: Acute (2) Fracture of left femur ICD Code: S72.92XA Status: Acute (3) HTN (hypertension) ICD Code: I10 Status: Acute (4) COPD (chronic obstructive pulmonary disease) ICD Code: J44.9 Status: Chronic (5) DM (diabetes mellitus) ICD Code: E11.9 Status: Acute Assessment and Plan 56 years old male 1. Fall: s/p mechanical fall from wheelchair, no LOC or head trauma reported. 2. Left Distal Femur Fx: S/P IMN with PCN pinning. Ortho consulted by ER doc , plan is for surgical intervention in am. NPO, IVF, analgesics/antiemetics as needed. Pre-op labs unremarkable. 3. HTN: BP on arrival, 204/101, HR 97, likely compounded by pain, BP currently 149/67, HR 98. Resume home Losartan, monitor BP. 4. COPD: Chronic Respiratory Failure. per patient not 02 dependent. Stable. Resume home Spiriva/Advair, DuoNeb q 6 RTC then q 2 prn . Restart his steroids - on it chronically at 7.5. - restart. 5. DM: Sliding scale w/ Accu-Cheks. on Levemer and metformin. restart in am 6. DVT Prophylaxis: Anticoagulation post-op per Ortho. 7. Social work for d/c planning as needed. Problem Qualifiers (1) Fracture of left femur: Qualified Code: S72.492A - Other closed fracture of distal end of left femur, initial encounter Kath Nascimento MD Oct 27, 2016 09:52 Kath Nascimento MD Oct 27, 2016 09:52
[2016-10-27] MEDS ORDERED: METOPROLOL TARTRATE 5 MG/5 ML VIAL ONE (09:54)
[2016-10-27] MEDS ORDERED: MIDAZOLAM HCL 2 MG/2 ML VIAL ONE (10:08)
[2016-10-27] MEDS ORDERED: fentaNYL CITRATE 250 MCG/5 ML AMP ONE (10:09)
[2016-10-27] MEDS ORDERED: *morphine SULFATE 8 MG/ML PERIprocedure ONLY ONE (10:11)
[2016-10-27] MEDS ORDERED: *LABETALOL HCL 100 MG/20 ML VIAL PERIprocedural Use ONLY ONE (10:19)
[2016-10-27] MEDS ORDERED: DO NOT ADM ANY ANTICOAGULANT DRUGS XX PRN ×2 (10:30→10:45)
[2016-10-27] MEDS ORDERED: PROPOFOL 200 MG/20 ML AMP IV ONE (12:00)
[2016-10-27] MEDS ORDERED: ERGOCALCIFEROL (VIT D2) 50,000 UNIT CAP PO SCH (12:00)
[2016-10-27] MEDS ORDERED: NEOSTIGMINE 3 MG/3 ML SYR IV ONE (12:00)
[2016-10-27] MEDS ORDERED: ONDANSETRON HCL 4 MG/2 ML VIAL IV PUSH ONE (12:00)
[2016-10-27] MEDS ORDERED: PHENYLEPH/NS 1000 MCG/10 ML SYR IV ONE (12:00)
[2016-10-27] MEDS ORDERED: LACTATED RINGER'S 1000 ML INJ 1,000 ML IV ONE (12:00)
[2016-10-27] MEDS: CALCIUM/VITAMIN D 250 MG/125 U TAB PO SCH ×2 (12:29→17:35)
--- NOTE | 2016-10-27 13:33 | EKG ---
Date Performed: 10/26/2016 Time Performed: 18:02:38 PTAGE: 56 years EKG: SINUS TACHYCARDIA LOW QRS VOLTAGE IN PRECORDIAL LEADS ABNORMAL RHYTHM ECG Compared to prior tracing no significant change PREVIOUS TRACING : 06/16/2012 16.37 DOCTOR: Magdiel Carey Interpretating Date/Time 10/27/2016 13:31:38
--- NOTE | 2016-10-27 13:57 | RADRPT ---
EXAM DATE/TIME: 10/27/2016 09:10 [facility] COMPARISON: FEMUR LEFT (AP & LAT/2VWS), October 26, 2016, 17:01. INDICATIONS: ORIF left femur IM katie. MEDICAL HISTORY: None. SURGICAL HISTORY: None. ENCOUNTER: Subsequent ACUITY: 2 days PAIN SCORE: Non-responsive. LOCATION: Left femur. FINDINGS: Intramedullary katie is seen bridging the fracture of the femur. Alignment is anatomic. CONCLUSION: Anatomic alignment. Marcellus Robb MD FACR on October 27, 2016 at 13:50 Board Certified Radiologist. This report was verified electronically.
[2016-10-27] MEDS ORDERED: PILL SPLITTER OTHER PRN (14:15)
[2016-10-27] MEDS: ACETAMINOPHEN/HYDROcodone 325 MG/7.5 MG TAB PO PRN (15:02)
[2016-10-27] MEDS: ceFAZolin 2 GM PREMIX 50 ML IV SCH ×2 (16:00→23:42)
[2016-10-27] MEDS: MORPHINE SULFATE 4 MG/ML INJ IV PUSH PRN (20:46)
[2016-10-27] MEDS: ATORVASTATIN 10 MG TAB PO SCH (20:48)
[2016-10-27] MEDS: MONTELUKAST SODIUM 10 MG TAB PO SCH (20:48)
[2016-10-27] MEDS: CYCLOBENZAPRINE HCL 10 MG TAB PO SCH (20:49)
[2016-10-27] MEDS: VANCOMYCIN INJ 1,000 MG in SODIUM CHLOR 0.9% 250 ML INJ 250 ML IV SCH (20:49)
[2016-10-27] MEDS: SODIUM CHLORIDE 0.9% FLUSH 5 ML FLUSH IVF SCH (20:49)
[2016-10-27] MEDS: traZODone HCL 100 MG TAB PO SCH (20:49)
[2016-10-27] MEDS: RESP: ALBUTEROL 2.5 MG/IPRATROPIUM 0.5 MG NEB (SCH) NEB (21:47)
[2016-10-28] VITALS (9 sets, daily range): BP systolic 139–170; BP diastolic 69–97; PULSE 96–100; RESP 16–24; TEMP 96.6–98.6; O2SAT 92–99
[2016-10-28] MEDS: MORPHINE SULFATE 4 MG/ML INJ IV PUSH PRN (03:04)
[2016-10-28] MEDS: RESP: ALBUTEROL 2.5 MG/IPRATROPIUM 0.5 MG NEB (SCH) NEB ×4 (04:04→21:39)
[2016-10-28] MEDS: ACETAMINOPHEN/HYDROcodone 325 MG/7.5 MG TAB PO PRN ×3 (06:06→17:32)
[2016-10-28] MEDS: INSULIN ASPART SUPPLEMENTAL SCALE SQ SCH ×4 (06:08→20:48)
--- NOTE | 2016-10-28 06:41 | PD.ORT.PN ---
Subjective Subjective Remarks Awake and alert. Pain controlled Objective Vitals Vital Signs Date Time Temp Pulse Resp B/P Pulse Ox O2 Delivery O2 Flow Rate FiO2 10/28/16 04:00 97.9 98 16 146/82 97 10/28/16 00:00 98.6 99 18 140/75 94 10/27/16 21:49 96 21 10/27/16 20:00 99.0 117 17 130/72 94 10/27/16 16:15 97.9 80 16 144/70 96 10/27/16 12:46 98 Nasal Cannula 2.00 10/27/16 12:02 98.6 94 20 132/72 93 10/27/16 10:45 83 14 129/84 99 Nasal Cannula 4 10/27/16 10:30 82 16 125/83 99 Nasal Cannula 4 10/27/16 10:15 87 21 168/108 98 Nasal Cannula 4 10/27/16 10:00 98 50 10/27/16 10:00 88 15 154/99 98 Bi-Pap 50 10/27/16 09:50 98.5 100 17 197/115 99 Simple Mask 10 10/27/16 07:15 98.8 96 20 153/77 94 I/O 10/27/16 10/27/16 10/27/16 10/28/16 10/28/16 10/28/16 07:00 15:00 23:00 07:00 15:00 23:00 Intake Total 240 ml 1460 ml 240 ml Output Total 600 ml 775 ml 400 ml Balance -360 ml 685 ml -160 ml Intake Oral 240 ml 360 ml 240 ml Other 1100 ml Output Urine Total 600 ml 675 ml 400 ml Estimated Blood Loss 100 ml # Voids 4 # Bowel Movements 0 0 Result Diagram: 10/27/16 0605 10/27/16 0605 Imaging Last 24 hours Impressions Femur X-Ray 10/26/16 1631 Signed Impressions: Service Date/Time: Wednesday, October 26, 2016 17:01 - CONCLUSION: Distal left femur fracture. Marty Martinez MD Objective Remarks Left lower extremity: Clean dry dressings intact. Moderate swelling. Intact sensation distally with good capillary refills. Strong dorsal flexion plantar flexion of foot Assessment & Plan Assessment and Plan 1) Left Distal Femur Fx status post IM nail POD 1 Physical therapy toe-touch weightbearing left lower extremity Daily dressing changes beginning POD 2 Discharge planning to rehabilitation Follow-up Dr. Roche or EBONY in 2 weeks Lovenox Incentive spirometry JOSE EDUARDO MARKS PA-C Oct 28, 2016 06:41
[2016-10-28 07:20] LABS: HEMATOCRIT 32.6 % (39.0-51.0); REVIEW FLAG FINAL
[2016-10-28] MEDS: TIOTROPIUM BROMIDE 18 MCG INH INH SCH (09:00)
[2016-10-28] MEDS ORDERED: predniSONE 5 MG TAB PO SCH ×2 (09:00→12:30)
[2016-10-28] MEDS: GABAPENTIN 300 MG CAP PO SCH ×3 (09:03→17:30)
[2016-10-28] MEDS: CHOLECALCIFEROL (VIT D3) 1000 UNIT TAB PO SCH (09:03)
[2016-10-28] MEDS: DOCUSATE SODIUM 100 MG CAP PO SCH ×2 (09:03→20:47)
[2016-10-28] MEDS: predniSONE 5 MG TAB PO SCH (09:03)
[2016-10-28] MEDS: LOSARTAN 50 MG TAB PO SCH (09:04)
[2016-10-28] MEDS: PARoxetine HCL 20 MG TAB PO SCH (09:04)
[2016-10-28] MEDS: CALCIUM/VITAMIN D 250 MG/125 U TAB PO SCH ×3 (09:05→17:30)
[2016-10-28] MEDS: VANCOMYCIN INJ 1,000 MG in SODIUM CHLOR 0.9% 250 ML INJ 250 ML IV SCH ×2 (09:06→20:48)
[2016-10-28] MEDS: ceFAZolin 2 GM PREMIX 50 ML IV SCH (09:06)
[2016-10-28] MEDS: SODIUM CHLORIDE 0.9% FLUSH 5 ML FLUSH IVF SCH ×2 (09:06→20:48)
[2016-10-28] MEDS: BUDESONIDE-FORMOTEROL 160/4.5 MCG INHALER INH SCH ×2 (09:07→20:48)
[2016-10-28] MEDS: ENOXAPARIN SODIUM 40 MG/0.4 ML SYRINGE SQ SCH (09:09)
[2016-10-28] MEDS: LORazepam 0.5 MG TAB PO PRN ×2 (09:18→20:47)
[2016-10-28] MEDS: LACTATED RINGER'S 1000 ML INJ 1,000 ML IV SCH ×2 (10:23→22:33)
--- NOTE | 2016-10-28 12:30 | HHI.PR ---
Subjective Remarks awake and alert, motivated with PT pain meds- controlling pain voiding spontaneously Objective Vitals Vital Signs Date Time Temp Pulse Resp B/P Pulse Ox O2 Delivery O2 Flow Rate FiO2 10/28/16 10:54 99 Nasal Cannula 4.00 10/28/16 08:00 97.9 100 24 148/97 92 10/28/16 04:00 97.9 98 16 146/82 97 10/28/16 00:00 98.6 99 18 140/75 94 10/27/16 21:49 96 21 10/27/16 20:00 99.0 117 17 130/72 94 10/27/16 16:15 97.9 80 16 144/70 96 10/27/16 12:46 98 Nasal Cannula 2.00 I/O 10/27/16 10/27/16 10/27/16 10/28/16 10/28/16 10/28/16 07:00 15:00 23:00 07:00 15:00 23:00 Intake Total 240 ml 1460 ml 240 ml 480 ml Output Total 600 ml 775 ml 400 ml 700 ml Balance -360 ml 685 ml -160 ml -220 ml Intake Oral 240 ml 360 ml 240 ml 480 ml Other 1100 ml Output Urine Total 600 ml 675 ml 400 ml 700 ml Estimated Blood Loss 100 ml # Voids 4 # Bowel Movements 0 0 0 Result Diagram: 10/28/16 0622 10/27/16 0605 Imaging Last Impressions Femur X-Ray 10/27/16 0000 Signed Impressions: Service Date/Time: Thursday, October 27, 2016 09:10 - CONCLUSION: Anatomic alignment. Marcellus Robb MD FACR Chest X-Ray 10/26/16 0000 Signed Impressions: Service Date/Time: Wednesday, October 26, 2016 17:52 - CONCLUSION: No acute disease. Marty Martinez MD Objective Remarks awake and alert, oriented x 3 anicteric lungs no rales or wheezes regular rhythm abdomen soft, nontender extremities- post op dressing in place left hip good peripheral pulses Procedures 10/27- IMN left hip A/P Problem List: (1) Fall ICD Code: W19.XXXA Status: Acute (2) Fracture of left femur ICD Code: S72.92XA Status: Acute (3) HTN (hypertension) ICD Code: I10 Status: Acute (4) COPD (chronic obstructive pulmonary disease) ICD Code: J44.9 Status: Chronic (5) DM (diabetes mellitus) ICD Code: E11.9 Status: Acute Assessment and Plan 56 years old male 1. Fall: s/p mechanical fall from wheelchair, no LOC or head trauma reported. 2. Left Distal Femur Fx: S/P IMN with PCN pinning. Ortho consulted by ER doc , plan is for surgical intervention in am. NPO, IVF, analgesics/antiemetics as needed. Pre-op labs unremarkable. 3. HTN: BP on arrival, 204/101, HR 97, likely compounded by pain, BP currently 149/67, HR 98. Resume home Losartan, monitor BP. 4. COPD: Chronic Respiratory Failure. per patient not 02 dependent. Stable. Resume home Spiriva/Advair, DuoNeb q 6 RTC then q 2 prn . Restart his steroids - on it chronically - 7.5 mg daily 5. DM: Sliding scale w/ Accu-Cheks. on Levemer and metformin. restart today. BS reviewed 6. DVT Prophylaxis: Lovenox 7. Social work for d/c planning as needed. - SNF Problem Qualifiers (1) Fracture of left femur: Qualified Code: S72.492A - Other closed fracture of distal end of left femur, initial encounter Kath Nascimento MD Oct 28, 2016 12:29
[2016-10-28] MEDS ORDERED: cloNIDine HCL 0.1 MG TAB PO PRN (12:45)
[2016-10-28] MEDS: metFORMIN HCL 500 MG TAB PO SCH (17:30)
[2016-10-28] MEDS: CYCLOBENZAPRINE HCL 10 MG TAB PO SCH (20:47)
[2016-10-28] MEDS: MONTELUKAST SODIUM 10 MG TAB PO SCH (20:47)
[2016-10-28] MEDS: traZODone HCL 100 MG TAB PO SCH (20:47)
[2016-10-28] MEDS: ATORVASTATIN 10 MG TAB PO SCH (20:48)
[2016-10-28] MEDS: INSULIN DETEMIR 100 UNITS/ML VIAL SQ SCH (20:48)
[2016-10-29] MEDS: ACETAMINOPHEN/HYDROcodone 325 MG/7.5 MG TAB PO PRN ×4 (00:16→14:56)
[2016-10-29] MEDS ORDERED: BACITRACIN TOP OINT 15 GM TUBE TOP PRN (01:30)
[2016-10-29] MEDS: RESP: ALBUTEROL 2.5 MG/IPRATROPIUM 0.5 MG NEB (SCH) NEB ×3 (04:10→15:29)
[2016-10-29 04:32] VITALS: BP 139/59; PULSE 115; RESP 22; TEMP 99; O2SAT 92
[2016-10-29] MEDS: INSULIN ASPART SUPPLEMENTAL SCALE SQ SCH ×3 (06:03→14:55)
--- NOTE | 2016-10-29 06:47 | PD.ORT.PN ---
Subjective Subjective Remarks Awake and alert. Pain controlled Objective Vitals Vital Signs Date Time Temp Pulse Resp B/P Pulse Ox O2 Delivery O2 Flow Rate FiO2 10/29/16 04:32 99.0 115 22 139/59 92 10/28/16 19:00 97.8 99 23 140/70 98 10/28/16 16:12 94 Nasal Cannula 3.00 10/28/16 16:00 97.4 98 22 139/69 95 10/28/16 14:04 95 Nasal Cannula 3.00 10/28/16 12:00 96.6 96 24 170/96 98 10/28/16 10:54 99 Nasal Cannula 4.00 10/28/16 08:00 97.9 100 24 148/97 92 I/O 10/28/16 10/28/16 10/28/16 10/29/16 10/29/16 10/29/16 07:00 15:00 23:00 07:00 15:00 23:00 Intake Total 480 ml 400 ml 360 ml Output Total 700 ml 600 ml 875 ml Balance -220 ml -200 ml -515 ml Intake Oral 480 ml 400 ml 360 ml Output Urine Total 700 ml 600 ml 875 ml # Bowel Movements 0 0 Result Diagram: 10/28/16 0622 10/27/16 0605 Imaging Last 24 hours Impressions Femur X-Ray 10/26/16 1631 Signed Impressions: Service Date/Time: Wednesday, October 26, 2016 17:01 - CONCLUSION: Distal left femur fracture. Marty Martinez MD Objective Remarks Left lower extremity: Clean dry dressings intact. Moderate swelling. Intact sensation distally with good capillary refills. Strong dorsal flexion plantar flexion of foot Assessment & Plan Assessment and Plan 1) Left Distal Femur Fx status post IM nail POD 2 Physical therapy toe-touch weightbearing left lower extremity Daily dressing changes Discharge planning to rehabilitation - ortho cleared Follow-up Dr. Roche or EBONY in 2 weeks Lovenox Incentive spirometry JOSE EDUARDO MARKS PA-C Oct 29, 2016 06:47
[2016-10-29] MEDS: LACTATED RINGER'S 1000 ML INJ 1,000 ML IV SCH (07:16)
[2016-10-29 08:00] VITALS: BP 143/89; PULSE 99; RESP 18; TEMP 98.4; O2SAT 91
[2016-10-29] MEDS: metFORMIN HCL 500 MG TAB PO SCH (08:25)
[2016-10-29] MEDS: CHOLECALCIFEROL (VIT D3) 1000 UNIT TAB PO SCH (08:26)
[2016-10-29] MEDS: BUDESONIDE-FORMOTEROL 160/4.5 MCG INHALER INH SCH (08:27)
[2016-10-29] MEDS: LOSARTAN 50 MG TAB PO SCH (08:28)
[2016-10-29] MEDS: DOCUSATE SODIUM 100 MG CAP PO SCH (08:28)
[2016-10-29] MEDS: predniSONE 5 MG TAB PO SCH (08:28)
[2016-10-29] MEDS: SODIUM CHLORIDE 0.9% FLUSH 5 ML FLUSH IVF SCH (08:28)
[2016-10-29] MEDS: PARoxetine HCL 20 MG TAB PO SCH (08:28)
[2016-10-29] MEDS: GABAPENTIN 300 MG CAP PO SCH ×2 (08:28→11:20)
[2016-10-29] MEDS: CALCIUM/VITAMIN D 250 MG/125 U TAB PO SCH ×2 (08:28→11:21)
[2016-10-29] MEDS: INSULIN DETEMIR 100 UNITS/ML VIAL SQ SCH (08:29)
[2016-10-29] MEDS: ENOXAPARIN SODIUM 40 MG/0.4 ML SYRINGE SQ SCH (08:29)
[2016-10-29] MEDS: LORazepam 0.5 MG TAB PO PRN ×2 (08:34→13:12)
[2016-10-29] MEDS: TIOTROPIUM BROMIDE 18 MCG INH INH SCH (08:36)
--- NOTE | 2016-10-29 09:05 | HHI.PR ---
Subjective Remarks looking forward to more thrapy pain controlled + flatus no nausea or vomiting Objective Vitals Vital Signs Date Time Temp Pulse Resp B/P Pulse Ox O2 Delivery O2 Flow Rate FiO2 10/29/16 08:00 98.4 99 18 143/89 91 10/29/16 04:32 99.0 115 22 139/59 92 10/28/16 19:00 97.8 99 23 140/70 98 10/28/16 16:12 94 Nasal Cannula 3.00 10/28/16 16:00 97.4 98 22 139/69 95 10/28/16 14:04 95 Nasal Cannula 3.00 10/28/16 12:00 96.6 96 24 170/96 98 10/28/16 10:54 99 Nasal Cannula 4.00 I/O 10/28/16 10/28/16 10/28/16 10/29/16 10/29/16 10/29/16 07:00 15:00 23:00 07:00 15:00 23:00 Intake Total 480 ml 400 ml 360 ml 360 ml Output Total 700 ml 600 ml 875 ml 925 ml Balance -220 ml -200 ml -515 ml -565 ml Intake Oral 480 ml 400 ml 360 ml 360 ml Output Urine Total 700 ml 600 ml 875 ml 925 ml # Bowel Movements 0 0 0 Result Diagram: 10/28/16 0622 10/27/16 0605 Imaging Last Impressions Femur X-Ray 10/27/16 0000 Signed Impressions: Service Date/Time: Thursday, October 27, 2016 09:10 - CONCLUSION: Anatomic alignment. Marcellus Robb MD FACR Chest X-Ray 10/26/16 0000 Signed Impressions: Service Date/Time: Wednesday, October 26, 2016 17:52 - CONCLUSION: No acute disease. Marty Martinez MD Objective Remarks awake and alert, oriented x 3 anicteric lungs no rales or wheezes regular rhythm abdomen soft, nontender extremities- post op dressing in place left hip good peripheral pulses Procedures 10/27- IMN left hip A/P Problem List: (1) Fall ICD Code: W19.XXXA Status: Acute (2) Fracture of left femur ICD Code: S72.92XA Status: Acute (3) HTN (hypertension) ICD Code: I10 Status: Acute (4) COPD (chronic obstructive pulmonary disease) ICD Code: J44.9 Status: Chronic (5) DM (diabetes mellitus) ICD Code: E11.9 Status: Acute Assessment and Plan 56 years old male 1. Fall: s/p mechanical fall from wheelchair, no LOC or head trauma reported. 2. Left Distal Femur Fx: S/P IMN with PCN pinning. PT daily. Orthopedics cleared patient for DC with OP ff. prn pain meds 3. HTN: on Losartan, 4. COPD: not 02 dependent. Stable. Resume home Spiriva/Advair, DuoNeb q 6 RTC then q 2 prn . Restart his steroids - on it chronically - 7.5 mg daily 5. DM: Sliding scale w/ Accu-Cheks. on Levemer and metformin.resumed 6. DVT Prophylaxis: Lovenox 7. Social work for d/c planning as needed. - SNF today Problem Qualifiers (1) Fracture of left femur: Qualified Code: S72.492A - Other closed fracture of distal end of left femur, initial encounter Kath Nascimento MD Oct 29, 2016 09:05
--- NOTE | 2016-10-29 09:08 | HHI.DS ---
Discharge Summary Admission Date Oct 26, 2016 at 19:31 Discharge Date: Oct 29, 2016 Admitting Diagnosis oblique fracture distal left femur (1) Fall ICD Code: W19.XXXA Diagnosis: Principal (2) Fracture of left femur ICD Code: S72.92XA Diagnosis: Principal (3) HTN (hypertension) ICD Code: I10 Diagnosis: Secondary (4) COPD (chronic obstructive pulmonary disease) ICD Code: J44.9 Diagnosis: Secondary (5) DM (diabetes mellitus) ICD Code: E11.9 Diagnosis: Secondary Procedures 10/27- IMN left hip Brief History - From Admission This is a 56-year-old male with a PMH of Anxiety, Depression, COPD, HTN and DM who was sent to the ER from [facility] for complaints of left knee pain following fall. Pt was apparently transferring from wheelchair and fell onto his left knee. No LOC or head trauma reported. On arrival, BP 204/101, HR 97, O2 sat 97% on RA, Temp 99.2. BP currently 149/67, HR 98. Chemistry at baseline. UA negative for UTI. CXR with no acute findings. Femur X-ray with distal left femur fracture. Ortho consulted by ER physician, plan is for surgical intervention in am. CBC/BMP: 10/28/16 0622 10/27/16 0605 Significant Findings Laboratory Tests Test 10/26/16 10/27/16 10/28/16 18:00 06:05 06:22 Hemoglobin 12.8 GM/DL 11.7 GM/DL 10.5 GM/DL (13.0-17.0) (13.0-17.0) (13.0-17.0) Mean Corpuscular Volume 79.4 FL 79.0 FL (80.0-100.0) (80.0-100.0) Mean Corpuscular Hemoglobin 25.4 PG 24.7 PG (27.0-34.0) (27.0-34.0) Neutrophils (%) (Auto) 78.1 % 73.2 % (16.0-70.0) (16.0-70.0) Neutrophils # (Auto) 8.3 TH/MM3 8.5 TH/MM3 (1.8-7.7) (1.8-7.7) Activated Partial 22.9 SEC Thromboplast Time (24.3-30.1) Urine Protein 100 mg/dL (NEG-TRACE) Urine Glucose (UA) 70 mg/dL (NEG) Urine Occult Blood MOD (NEG) Urine Mucus FEW /lpf (OCC) Blood Urea Nitrogen 22 MG/DL (7-18) 22 MG/DL (7-18) Estimat Glomerular Filtration 60 ML/MIN (>89) 66 ML/MIN (>89) Rate Random Glucose 191 MG/DL 198 MG/DL (74-106) (74-106) Aspartate Amino Transf 11 U/L (15-37) 102 U/L (15-37) (AST/SGOT) Albumin 3.3 GM/DL 3.0 GM/DL (3.4-5.0) (3.4-5.0) White Blood Count 11.6 TH/MM3 (4.0-11.0) Hematocrit 37.4 % 32.6 % (39.0-51.0) (39.0-51.0) Mean Corpuscular Hemoglobin 31.3 % Concent (32.0-36.0) Monocytes (%) (Auto) 8.4 % (0.0-8.0) Monocytes # (Auto) 1.0 TH/MM3 (0-0.9) Calcium Level 8.3 MG/DL (8.5-10.1) Total Protein 6.3 GM/DL (6.4-8.2) Imaging Last Impressions Femur X-Ray 10/27/16 0000 Signed Impressions: Service Date/Time: Thursday, October 27, 2016 09:10 - CONCLUSION: Anatomic alignment. Marcellus Robb MD FACR Chest X-Ray 10/26/16 0000 Signed Impressions: Service Date/Time: Wednesday, October 26, 2016 17:52 - CONCLUSION: No acute disease. Marty Martinez MD PE at Discharge awake and alert, oriented x 3 anicteric lungs no rales or wheezes regular rhythm abdomen soft, nontender extremities- post op dressing in place left hip good peripheral pulses Pt update on day of discharge awake and alert, +pain on po pain meds lungs clear very motivated with physical therapy Hospital Course 56 years old male 1. Fall: s/p mechanical fall from wheelchair, no LOC or head trauma reported. 2. Left Distal Femur Fx: S/P IMN with PCN pinning. Ortho consulted by ER doc , plan is for surgical intervention in am. NPO, IVF, analgesics/antiemetics as needed. Pre-op labs unremarkable. 3. HTN: BP on arrival, 204/101, HR 97, likely compounded by pain, BP currently 149/67, HR 98. Resume home Losartan, monitor BP. 4. COPD: Chronic Respiratory Failure. per patient not 02 dependent. Stable. Spiriva/Advair, DuoNeb q 6 RTC then q 2 prn . continue Prednisone- steroids - on it chronically - 7.5 mg daily 5. DM: Sliding scale w/ Accu-Cheks. on Levemer and metformin. restart diabetic regimen in SNF 6. DVT Prophylaxis: Xarelto on DC per ortho x 14 days 7. Social work for d/c planning as needed. - SNF Pt Condition on Discharge: Stable Discharge Disposition: Discharge to SNF Discharge Time: <= 30 minutes Discharge Instructions DIET: Follow Instructions for: Heart Healthy Diet, Diabetic Diet Speech Therapy-Diet Recommends: Regular Activities you can perform: Toe Touch Weight Bearing (left lower extremity) Activities to Avoid: Prolonged Standing, Strenuous Activity Follow up Referrals: Orthopedics - 11/10/16 @ [facility] with Mk Duckworth MD New Medications: Ergocalciferol (Ergocalciferol) 50,000 Unit Cap 68119 UNITS PO Q7D Nutritional Supplement #56 CAP Hydrocodone-Acetaminophen ([place]) 7.5-325 mg Tab 1 TAB PO Q4H PRN PAIN #60 Ref 0 TAB Rivaroxaban (Xarelto) 10 Mg Tab 10 MG PO DAILY Blood Clot Prevention #14 Ref 0 TAB Walker/Adult/Folding (Walker/Adult/Folding) 1 Mis Mis 1 EA .ROUTE DIRECTED #1 Ref 0 EA Kath Nascimento MD Oct 29, 2016 09:08
[2016-10-29 09:19] VITALS: O2SAT 93
[2016-10-29 12:01] VITALS: BP 103/65; PULSE 99; RESP 18; TEMP 97.1; O2SAT 97
[2016-10-29 15:50] VITALS: BP 149/77; PULSE 89; RESP 20; TEMP 98; O2SAT 97
== END 2016-10-29 17:03 | DRG 481 ==
LOC: NEPC 16:19 → NEDA 19:31 → N06A 22:13
PROVIDERS: ADMIT Internal Medicine; ATTEND Internal Medicine
PROC: 0QS9XZZ Reposition Left Femoral Shaft, External Approach (ICD-10-PCS; 2016-10-27)
PROC: 0QH936Z Insertion of Intramedullary Internal Fixation Device into Left Femoral Shaft, Percutaneous Approach (ICD-10-PCS; principal; 2016-10-27 07:47)
DX: S72.332A Displaced oblique fracture of shaft of left femur, initial encounter for closed fracture (principal); J96.10 Chronic respiratory failure, unspecified whether with hypoxia or hypercapnia; J44.9 Chronic obstructive pulmonary disease, unspecified; W05.0XXA Fall from non-moving wheelchair, initial encounter; Y92.129 Unspecified place in nursing home as the place of occurrence of the external cause; I10 Essential (primary) hypertension; F32.9 Major depressive disorder, single episode, unspecified; F41.9 Anxiety disorder, unspecified; E11.9 Type 2 diabetes mellitus without complications; Z79.4 Long term (current) use of insulin; Z79.84 Long term (current) use of oral hypoglycemic drugs; M19.90 Unspecified osteoarthritis, unspecified site; Z87.891 Personal history of nicotine dependence
CPT/HCPCS: 71010; 73552; 76000; 80053; 81001; 82652; 82948; 85014; 85018; 85025; 85610; 85730; 86850; 86900; 86901; 90686; 93005; 94002; 94150; 94640; 94664; 96372; 96374; 96375; 96376; C1713; C1769; J0131; J0690; J1100; J1170; J1580; J1650; J1815; J2250; J2270; J2370; J2405; J2710; J2765; J3010; J3370; J7030; J7050; J7120; J7512; J7613; L1830; Q2038

== ENCOUNTER 2018-02-24 21:52 | Inpatient (IN) ==
[2018-02-27] MEDS ORDERED: Dextrose 50% in Water 50 ML Vial IV.PUSH PRN (11:24)
[2018-02-27] MEDS ORDERED: Insulin NovoLOG Aspart Correctional Sugar Inj SQ SCH (12:00)
[2018-02-28] MEDS ORDERED: Heparin - SQ 10,000 UNITS/ML Vial SQ SCH
[2018-02-28] MEDS ORDERED: Naloxone Inj 0.4 MG/ML Vial IV.PUSH PRN (00:01)
[2018-02-28] MEDS ORDERED: Acetaminophen 325 MG Tablet PO PRN (00:01)
[2018-02-28] MEDS ORDERED: Bisacodyl 10 MG Supp RECTAL PRN (00:01)
[2018-02-28] MEDS ORDERED: Insulin NovoLOG Aspart Correctional Sugar Inj SQ SCH (00:01)
[2018-02-28] MEDS ORDERED: Dextrose 50% in Water 50 ML Vial IV.PUSH PRN (00:01)
[2018-02-28] MEDS ORDERED: Pantoprazole Sodium 20 MG DR Tablet PO SCH (09:00)
[2018-02-28] MEDS ORDERED: Tiotropium Bromide 18 MCG/ACT Inhaler INH SCH (09:00)
[2018-02-28] MEDS ORDERED: MethylPREDNISolone Sod Succinate Inj 40 MG/ML Vial IV.PUSH SCH (09:00)
[2018-02-28] MEDS ORDERED: traZODone 50 MG Tablet PO SCH (21:00)
== END 2018-02-27 15:23 ==
LOC: N03 22:18
PROVIDERS: ADMIT Family Medicine; ATTEND Family Medicine